=== PATIENT | male | born 1960 | race Two or more races ===

== ENCOUNTER 2024-03-03 09:22 | Outpatient (REF) | payer OTHER, SELFPAY ==
[2024-03-03 13:51] LABS: MANUAL DIFF FLAG NO
[2024-03-03 14:00] LABS: Basophils Absolute Auto 0.1 X10*3/uL (0.0-0.2); Basophils Percent Auto 0.6 % (0-2); Hematocrit 42.5 % (42.0-52.0); Hemoglobin 14.5 g/dl (14.0-18.0); Imm Gran Abs Auto 0.06 X10*3/uL (0.00-0.03); Imm Gran Pct Auto 0.6 % (0.0-0.4); Lymphocytes Absolute Auto 1.8 X10*3/uL (1.2-4.9); Lymphocytes Percent Auto 16.7 % (20-40); Mean Corpuscular HGB Conc 34.1 g/dl (31.0-36.0); Mean Corpuscular Hemoglobin 33.8 pg (27.0-33.0); Mean Corpuscular Volume 99.1 fL (80.0-98.0); Mean Platelet Volume 12.2 fL (9.4-12.4); Monocytes Absolute Auto 0.8 X10*3/uL (0.1-1.2); Monocytes Percent Auto 7.1 % (2-11); Neutrophils Absolute Auto 8.2 x10*3/uL (2.0-8.3); Platelet Count 225 X10*3/uL (160-400); Red Blood Count 4.29 X10*6/uL (4.60-5.80); Red Cell Distribution Width 15.7 % (11.0-16.0); White Blood Count 10.9 X10*3/uL (4.8-10.8)
[2024-03-03 14:14] LABS: Estimated Average Glucose 97 mg/dL
[2024-03-03 14:20] LABS: Alanine Aminotransferase 13 U/L (0-40); Albumin Level 4.4 g/dL (3.5-5.0); Alkaline Phosphatase 67 U/L (39-117); Anion Gap 14 (12-20); Aspartate Amino Transferase 18 U/L (5-37); Bilirubin Total 0.5 mg/dL (0.0-1.0); Blood Urea Nitrogen 13 mg/dL (9-16); Calcium 9.6 mg/dL (8.4-10.2); Carbon Dioxide 24 mmol/L (22-29); Chloride 105 mmol/L (96-108); Cholesterol 228 mg/dL (<200); Estimated Glomerular Filt Rate > 60; Glucose Random 93 mg/dL (60-115); HDL Cholesterol 48 mg/dL (>40); LDL Cholesterol Calculated 143 mg/dL (<100); Sodium 139 mmol/L (135-145); Total Protein 8.1 g/dL (6.5-8.0); Triglycerides 189 mg/dL (<150)
[2024-03-03 14:31] LABS: PSA,Total (Free>4and<10) 0.82 ng/mL (0.00-4.00)
[2024-03-04 08:32] LABS: ~HepC Num1 0.06 S/CO (0.00-0.79); ~Hepatitis C Antibody Nonreactive (Nonreactive)
[2024-03-06 09:09] LABS: HIV RNA PCR Qn Copies Not Detected Copies/mL; HIV RNA PCR Qn Log Copies Not Detected Log cps/mL
== END 2024-03-03 09:23 | disposition home or self-care (01) ==
LOC: HO.CHCLDS 09:22
PROVIDERS: Visit Provider Internal Medicine
DX: I10 Essential (primary) hypertension (principal); Z12.5 Encounter for screening for malignant neoplasm of prostate
CPT/HCPCS: 36415; 80053; 80061; 83036; 84153; 84443; 85025; 86803; 87536; 87900

== ENCOUNTER 2024-11-03 11:50 | Outpatient (REF) | payer MEDICAID, SELFPAY ==
[2024-11-03 14:36] LABS: Anion Gap 13 (12-20); Blood Urea Nitrogen 25 mg/dL (9-16); Calcium 9.8 mg/dL (8.4-10.2); Carbon Dioxide 21 mmol/L (22-29); Chloride 108 mmol/L (96-108); Estimated Glomerular Filt Rate > 60; Glucose Random 82 mg/dL (60-115); Potassium 4.4 mmol/L (3.3-5.1); Sodium 138 mmol/L (135-145)
--- OUTSIDE RECORDS SUMMARY | 2024-11-03 14:38 | XMS_ITS | Encounter Summary ---
Author Organization [employer] Address [address] [facility] [address] [place] [address] Care Team Providers Care Physical Director Name Role Phone Nicanor Navas MD Primary Care Prov ider Reason for Referral * Consultation (Routine) - Pending Review Specialty Diagnoses / Procedures Referred By Jake padron Referred To Contact Physical Therapy Diagnoses Acute midline low back pain without sciatica Pancho Mascorro MD [address] [place] [phone] Phone: tel: fax: Referral ID Status Reason Start Date Expiration Date Visits Requested Visits Authorized [id number] Pending Review Specialty Services Required 11/03/2024 11/03/2025 1 1 * Consultation (Routine) - Authorized Specialty Diagnoses / Procedures Referred By Jake padron Referred To Contact Pharmacy Diagnoses Smoking Pancho Mascorro MD [address] [place] [phone] Phone: tel: fax: Referral ID Status Reason Start Date Expiration Date Visits Requested Visits Authorized [id number] Authorized Consult and Treat 11/03/2024 11/03/2025 6 6 Scheduling Instructions Smoking cessation. * PFT (Routine) - Authorized Specialty Diagnoses / Procedures Referred By Jake padron Referred To Contact Diagnoses SOB (shortness of breath) Smoking Procedures Pulmonary Function Test Pancho Mascorro MD [address] [place] [phone] Phone: tel: fax: [facility] [address] [place], [place] Phone: tel: fax: Referral ID Status Reason Start Date Expiration Date V isits Requested Visits Authorized [id number] Authorized 11/03/2024 11/03/2025 1 1 Encounter Details Date Type Department Care Team (Late st Contact Info) Description 11/03/2024 10:45 AM EDT Office Visit [facility] [address] [place] [address] Pancho Mascorro MD [address] [place] [address] SOB (shortness of breath) (Primary Dx); KALYAN (acute kidney injury) (CMS/HCC); Pyelonephritis; Smoking; Acute midline low back pain without sciatica Social History Tobacco Use Types Packs/Day Years Used Date Smoking Tobacco: Every Day Cigarettes 1.5 45 Smokeless Tobacco: Never Alcohol Use Standard Drinks/Week Comments Yes 0 (1 standard drink = 0.6 oz pur e alcohol) wine Depression Answer Date Recorded Patient Health Questionnaire-9 Score 0 01/06/2024 Patient Health Questionnaire-9 Score 0 01/06/2024 Last PHQ-9: Questionnaire Data Not on file 0 01/06/2024 Housing Stability Answer Date Recorded What is your housing situation today? I do not have housing (Staying with others, in a hotel, in a alf, living outside on the street, on a beach, in a car, or in a park 11/03/[address] you li ve. Do you have problems with any of the following? Lead [place] or [place];Inadequate heat 11/03/2024 Food Insecurity Answer Date Recorded Within the past 12 months, y ou worried that your food would run out before you got money to buy more: Sometimes True 2024 Within the past 12 months,th e food you bought just didn't last and you didn't have enough money to get more: Sometimes True 11/03/2024 Transportation Answer Date Recorded In the past 12 months, has l ack of transportation kept you from medical appts, meetings, work or from getting things needed for daily living? No 01/06/2024 Utilities Answer Date Recorded In the past 12 months, has t he electric, gas, oil or water company threatened to shut off services in your home? Yes 11/03/2024 Depression Answer Date Recorded Patient Health Questionnaire-2 Score 0 01/06/2024 Internet Access Answer Date Recorded Internet Access Q1 Yes 11/03/2024 Internet Access Q2 Not on file 11/03/2024 Sex and Gender Information Value Date Recorded Sex Assigned at Male 01/06/2024 10:47 AM EDT Legal Sex Male 9:33 AM EDT Gender Identity Male 01/06/2024 10:47 AM EDT Sexual Orientation Straight 01/06/2024 10 :47 AM EDT documented as of this encounter Last Filed Vital Signs Vital Sign Reading Time Taken Comments Blood Pressure 144/83 11/03/2024 11:00 AM EDT Pulse 116 11/03/2024 11:00 AM EDT Temperature 36.7 ??C (98 ??F) 11/03/2024 11:00 AM EDT Respiratory Rate 20 11/03/2024 11:00 AM EDT Oxygen Saturation 99% 11/03/2024 11:00 AM EDT Inhaled Oxygen Concentration - - Weight 66.2 kg (146 lb) 11/03/2024 11:00 AM EDT Height 160 cm (5' 3 ) 11/03/2024 11:00 AM EDT Body Mass Index 25.86 11/03/2024 11:00 AM EDT documented in this encounter Plan of Treatment Scheduled Orders Name Type Priority Associated Diagnoses Orde r Schedule Pulmonary Function Test PFT Routine SOB (shortness of breath) Smoking Expected: 11/03/2024, Expires: 05/06/2025 PSA, Total With Reflex to PSA, Free Lab Routine KALYAN (acute kidney injury) (CMS/HCC) Smoking Expected: 11/03/2024 (Approximate), Expires: 11/03/2025 XR Lumbar Spine 2-3 Views Imaging Routine Acute midline low back pain without sciatica Expected: 11/03/2024, Expires: 11/03/2025 Scheduled Referrals Name Type Priority Associated Diagnoses Orde r Schedule Referral to Pharmacy CDTM Outpatient Referral Routine Smoking Ordered: 11/03/2024 Referral to Physical Therapy Outpatient Referral Routine Acute midline low back pain without sciatica Expected: 11/03/2024 (Approximate), Expires: 11/03/2025 documented as of this encounter Procedures Procedure Name Priority Date/Time Associated Diagnosis Comments BASIC METABOLIC PANEL Routine 11/03/2024 11:52 AM EDT KALYAN (acute kidney injury) ([facility]) Smoking documented in this encounter Results * (ABNORMAL) Basic Metabolic Panel (11/03/2024 11:52 AM EDT) Sodium 138 135 - 145 mmol/L [facility] Potassium 4.4 3.3 - 5.1 mmol/L [facility] Chloride 108 96 - 108 mmol/L [facility] Carbon Dioxide 21(L) 22 - 29 mmol/L [facility] Anion Gap 13 12 - 20 [facility] Urea Nitrogen (BUN) 25(H) 9 - 16 mg/dL [facility] Creatinine, Serum 0.89 0.5 - 1.4 mg/dL [facility] Estimated Glomerular Filt Rate >60 [facility] Comment:Chronic Kidney Disea se: Estimated GFR < 60 mL/min/[id number] Kidney Disease: Estimated GFR < 15 mL/min/1.73m2 Glucose 82 60 - 115 mg/dL [facility] Calcium 9.8 8.4 - 10.2 mg/dL [facility] Blood Venous blood specimen / Unknown 11/03/2024 11:52 AM EDT 11/03/2024 2:07 PM EDT us Pancho Mascorro MD LAB BLOOD ORDERABLES Final Result [facility] [address] [place] [phone] documented in this encounter Visit Diagnoses Diagnosis SOB (shortness of breath)- Primary Shortness of breath KALYAN (acute kidney injury) ([facility]/HCC) Pyelonephritis Unspecified pyelonephritis Smoking Tobacco use disorder Acute midline low back pain without sciatica documented in this encounter Additional Health Concerns Assessment Noted Time PHQ-9 Depression Total Score: 0 01/06/20 24 1:44 PM EDT documented as of this encounter Care Teams Physical Director Relationship Specialty Start Date End Date Nicanor Navas MD [address] [place] [phone] PCP - General Internal Medicine 01/06/24 documented as of this encounter
--- OUTSIDE RECORDS SUMMARY | 2024-11-03 14:38 | XMS_ITS | Encounter Summary ---
Author Organization [employer] Address [address] [facility] 7 [place] [address] Care Team Providers Care Assistant Account Manager Name Role Phone Nicanor Navas MD Primary Care Prov ider Reason for Visit * Reason Comments Transition Of Care (Tcm) HDF- Unschedule d LVM Encounter Details Date Type Department Care Team ([facility] st Contact Info) Description 10/26/2024 Patient Outreach [facility] [address] [place] [address] Nicanor Navas MD [address] [place] [address] Transition Of Care (Tcm) (HDF- Unscheduled LVM) Social History Tobacco Use Types Packs/Day Years [...] What is your housing situation today? I have eunice harris 01/06/[address] you li ve. Do you have problems with any of the following? None of the above 01/06/2024 Food Insecurity Answer Date Recorded Within the past 12 months, y ou worried that your food would run out before you got money to buy more: Never True 01/06/2024 Within the past 12 months,th e food you bought just didn't last and you didn't have enough money to get more: Never True Transportation Answer Date Recorded In the past 12 months, has l ack of transportation kept you from medical appts, meetings, work or from getting things needed for daily living? No 01/06/2024 Utilities Answer Date Recorded In the past 12 months, has t he electric, gas, oil or water company threatened to shut off services in your home? No 01/06/2024 Depression Answer Date Recorded Patient Health Questionnaire-2 Score 0 01/06/2024 Sex and Gender Information Value Date Recorded Sex Assigned at Male 01/06/2024 10:47 AM EDT Legal Sex Male 9:33 AM EDT Gender Identity Male 01/06/2024 10:47 AM EDT Sexual Orientation Straight 01/06/2024 10 :47 AM EDT documented as of this encounter Miscellaneous Notes * Significant Event - Denise Colby - 10/26/2024 12:50 PM EST 10/26/24 1248 Hospital Discharges and Admission for [facility] Type of Visit Hospital Admission Date of Admission/Visit 10/17/24 Date of Discharge 10/19/24 [facility] Diagnosis Pyelonephritis,Acute kidney injury,Hypertension, COPD with acute exacerbation,Sepsis,Acute hypoxemic respiratory failure, Bacteremia Disposition Discharged Home Follow-Up Actions Follow-Up Needed Provider appointment Follow-Up Outcome Left Voicemail Initial Contact Date 10/26/24 CHRISTIAN Fall placed outbound call to patient for HDF outreach. CC placing call to offer patient with an HDF appointment with provider. No answer at this time. Patient's name and were not confirmed. CC left detailed message educating patient on importance of following up with provider following an inpatient admission. Provided contact information requesting a call back in order to schedule theHDF appointment. Patient educated via voicemail on extended clinic hours on Mondays and Wednesdays,and Walk-In Urgent Care Located in [facility]. Patient provided with after-hours line for [facility], , which offer night time triage service and option to transfer to occupational medicine officer provider if needed. CC scanned both discharge summary into patient's chart. CC will place additional outreach call within 2-5 business days. documented in this encounter Plan of Treatment Not on file documented as of this encounter Visit Diagnoses Not on filedocumented in this encounter Additional Health Concerns Assessment Noted Time PHQ-9 Depression Total Score: 0 01/06/20 1:44 PM EDT documented as of this encounter Care Teams Assistant Account Manager Relationship Specialty Start Date End Date Nicanor Navas MD [address] [place] [phone] PCP - General Internal Medicine 01/06/24 documented as of this encounter
--- OUTSIDE RECORDS SUMMARY | 2024-11-03 14:38 | XMS_ITS | Encounter Summary ---
Author Organization [employer] Address [address] [facility] [address] [place] [address] Care Team Providers Care Ship Superintendent Name Role Phone Nicanor Navas MD Primary Care Prov ider Reason for Visit * Reason Comments Transition Of Care (Tcm) HDF scheduled. Encounter Details Date Type Department Care Team ([facility] st Contact Info) Description 10/27/2024 Patient Outreach [facility] [address] [place], [place] [phone] Nicanor Navas MD [address] [place] [address] Transition Of Care (Tcm) (HDF scheduled. ) Social History Tobacco Use Types Packs/Day Years [...] encounter Miscellaneous Notes * Significant Event - Hillary Rosado - 10/27/2024 12:56 PM EST 10/27/24 1250 Hospital Discharges and Admission for [facility] Date of Admission/Visit 10/17/24 Date of Discharge 10/19/24 Facility [facility] Diagnosis COPD Acute exarcebation. Disposition Discharged Home Follow-Up Actions Follow-Up Needed Provider appointment Follow-Up Outcome Spoke to Patient;Booked Appointment Initial Contact Date 10/27/24 CC Hillary Baeza placed outbound call to patient for HDF outreach. Patient's name and were confirmed. Patient educated on the importance of follow up with provider following inpatient admission. Patient offered an HDF appt. Patient is agreeable to an appointment and has been scheduled for 11/03/2024 at 10:45am with Dr. Mascorro. patient provided with education on contacting the Health Center with any questions or concerns prior to the scheduled appointment. Patient educated on extended clinic hours on Mondays and Wednesdays, and Walk-In Urgent Care Located in [facility]. Patient provided with after-hours line for [facility], , which offer night time triage service and option to transfer to integration solution architect provider if needed. CC scanned discharge summary into patient's chart. Biggest concern for appointment at this time is no concerns. Appropriate screenings completed in anticipation of appointment. documented in this encounter Plan of Treatment Not on file documented as of this encounter Visit Diagnoses Not on filedocumented in this encounter Additional Health Concerns Assessment Noted Time PHQ-9 Depression Total Score: 0 01/06/20 24 1:44 PM EDT documented as of this encounter Care Teams Ship Superintendent Relationship Specialty Start Date End Date Nicanor Navas MD [address] [place] [phone] PCP - General Internal Medicine 01/06/24 documented as of this encounter
--- OUTSIDE RECORDS SUMMARY | 2024-11-03 14:38 | XMS_ITS | Encounter Summary ---
Author Organization [employer] Address [address] [facility] [address] [place] [address] Care Team Providers Care Marker Shipments Name Role Phone Nicanor Navas MD Primary Care Prov ider Reason for Visit * Reason Onset Date Comments Hospital Follow-up 10/26/2024 Encounter Details Date Type Department Care Team ([facility] st Contact Info) Description 10/26/2024 Telephone [facility] [address] [place], [place] [phone] Nicanor Navas MD [address] [place] [address] Hospital Follow-up Social History Tobacco Use Types Packs/Day Years [...] as of this encounter Miscellaneous Notes * Telephone Encounter - Xavi Hussein - 10/27/2024 12:26 PM EST Tc from pt returning call regarding prior message. Contact pt at [phone] (Nigerien) * Telephone Encounter - Shanna Anguiano - 10/26/2024 11:59 AM EST Tc from pt friend jason requesting a HDF appt. Hospital: [facility] and then transferred to [facility] in [place] Date of admission: 10/12/24 Discharge date: 10/21/24 Diagnosed: fall , bladder infection and some kidney concern *Send message to [place] [facility] Coordinators documented in this encounter Plan of Treatment Not on file documented as of this encounter Visit Diagnoses Not on filedocumented in this encounter Additional Health Concerns Assessment Noted Time PHQ-9 Depression Total Score: 0 01/06/20 1:44 PM EDT documented as of this encounter Care Teams Marker Shipments Relationship Specialty Start Date End Date Nicanor Navas MD [address] [place] [phone] PCP - General Internal Medicine 01/06/24 documented as of this encounter
--- OUTSIDE RECORDS SUMMARY | 2024-11-03 14:38 | XMS_ITS | Clinical Summary ---
Author Organization [employer] Address [address] [facility] [address] [place] [address] Care Team Providers Care Agriculture Professor Name Role Phone Nicanor Navas MD Primary Care Prov ider Allergies No known active allergies Medications sildenafil (Viagra) 50 MG tablet Take 1 tablet (50 mg) by mouth if needed each day for erectile dysfunction. 25 tablet 01/06/20 24 Active Blood Pressure kit 1 kit Once per day. 1 kit 01/08/20 24 Active amLODIPine (Norvasc) 10 MG tablet Take 1 tablet (10 mg) by mouth Once per day. 30 tablet 11 03/03/20 24 025 Active lisinopril 40 MG tablet Take 1 tablet (40 mg) by mouth Once per day. 90 tablet 03/03/20 24 025 Active atorvastatin (Lipitor) 40 MG tablet Take 1 tablet (40 mg) by mouth Once per day. 30 tablet 04/13/20 24 025 Active Additional Information Patient not taking.Reported on 10/30/2024 Ventolin HFA 108 (90 Base) MCG/ACT inhaler Inhale 1 puff every 4 (four) hours if needed for wheezing or shortness of breath. 10/19/19 25 Active cefpodoxime (Vantin) 200 MG tablet Take 1 tablet by mouth 2 times daily. 10/19/19 25 025 Active Breo Ellipta 100-25 MCG/ACT aerosol powder Inhale 1 puff Once per day. 10/19/19 25 Active Umeclidinium- Vilanterol (Anoro Ellipta) 62.5-25 MCG/ACT aerosol powderIndicat ions:SOB (shortness of breath) Inhale 62.5 mcg Once per day. 60 each 11 11/04/19 25 Active nicotine (Nicoderm CQ) 21 MG/24HR patchIndicati ons:Smoking Place 1 patch on the skin 1 (one) time each day at the same time. 30 patch 11/04/19 25 025 Active celecoxib (CeleBREX) 100 MG capsuleIndica tions:Acute midline low back pain without sciatica Take 1 capsule (100 mg) by mouth 2 times daily. 60 capsule 11/04/19 25 025 Active hydrOXYzine HCl (Atarax) 25 MG tablet Take 1 tablet (25 mg) by mouth if needed in the morning, at noon, and at bedtime for itching. 90 tablet 3 04/13/20 24 025 Discontinued(Me d list cleanup (will not trigger notification to Pharmacy)) Active Problems Problem Noted Date Diagnosed Date Acute midline low back pain without sciatica 06/2025 Anxiety 04/13/2024 Assessment & Plan (04/13/2024 1:39 PM EDT): Will prescribe hydroxyzine, not interested in BH therapy for now Mixed hyperlipidemia 04/13/2024 Assessment & Plan (04/13/2024 1:39 PM EDT): The 10-year ASCVD risk score (Aguila PAINTER, et al., 2019) is: 21.1% Values used to calculate the score: Age: 64 years Sex: Male Is Non- : No Diabetic: No Tobacco smoker: Yes Systolic Blood Pressure: 123 mmHg Is BP treated: Yes HDL Cholesterol: 48 mg/dL Total Cholesterol: 228 mg/dL Will start on atorvastatin 40mg, risk vs benefits were discussed, follow up in 4 months Primary hypertension 01/08/2024 Assessment & Plan (04/13/2024 1:38 PM EDT): Controlled, continue amlodipine and lisinopril, encourage low sodium diet, follow up in 4 months Assessment & Plan (03/03/2024 12:35 PM EDT): Not at target, will increase lisinopril and amlodipine, follow up in 1 month, decrease sodium in diet and exercise as tolerated, new labs ordered Assessment & Plan (01/08/2024 10:57 PM EDT): On lisinopril and amlodipine, will send a bp monitor, told to keep a log, target <140/90 Prostate cancer screening 01/08/2024 Assessment & Plan (01/08/2024 10:58 PM EDT): Will order PSA Screening for lung cancer 01/08/2024 Assessment & Plan (01/08/2024 10:58 PM EDT): >40 pack year smoker hx, will refer for lung cancer screening Colon cancer screening 01/08/2024 Assessment & Plan (01/08/2024 10:57 PM EDT): Will refer for colon cancer screening Other male erectile dysfunction 01/08/2024 Assessment & Plan (01/08/2024 10:59 PM EDT): Denied having moring erections, will start on viagra, call back if side effects reported Encounter to establish care 01/08/2024 Assessment & Plan (01/08/2024 11:01 PM EDT): Patient has not visit er/hospitalized in over 10 years. He has hx of htn on amlodipine and lisinopril. Chronic smoker: need lung cancer screening Will place lab order to evaluate for other secondary conditions Encounters Date Type Department Care Team Description 11/03/2024 10:45 AM EDT Office Visit [facility] [address] [place] [address] Pancho Mascorro MD SOB (shortness of breath) (Primary Dx); KALYAN (acute kidney injury) (CMS/HCC); Pyelonephritis; Smoking; Acute midline low back pain without sciatica 11/03/2024 Travel 10/30/2024 Travel 10/27/2024 Patient Outreach [facility] [address] [place] [address] Nicanor Navas MD Transition Of Care (Tcm) (HDF scheduled. ) 10/26/2024 Patient Outreach [facility] [address] [place] [address] Nicanor Navas MD Transition Of Care (Tcm) (HDF- Unscheduled LVM) 10/26/2024 Telephone [facility] [address] [place], [place] [phone] Nicanor Navas MD Hospital Follow-up 08/24/2024 Telephone [facility] [address] [place] [address] Nicanor Navas MD from Last 3 Months Family History Medical History Relation Name Comments Gout Father No Known Problems Mother Relation Name Status Comments Father Mother Social History Tobacco Use Types Packs/Day Years Used Date Smoking Tobacco: Every Day Cigarettes 1.5 45 Smokeless Tobacco: Never Tobacco Cessation:Ready to Q uit: Not Asked; Counseling Given: Not Answered Alcohol Use Standard Drinks/Week Comments Yes 0 [...] with others, in a hotel, in a prison, living outside on the street, on a beach, in a car, or in a park 11/03/[address] you li ve. Do you have problems with any of the following? Lead [place] or [place];Inadequate heat 11/03/2024 Food Insecurity Answer [...] Orientation Straight 01/06/2024 10 :47 AM EDT Last Filed Vital Signs Vital Sign Reading [...] Mass Index 25.86 11/03/2024 11:00 AM EDT Plan of Treatment Health Maintenance Due Date Last Done Comments CT Colonography 1959 Colonoscopy 1959 Colorectal Cancer Screening 1959 FIT DNA/Cologuard 1959 FIT 1959 FOBT 1959 Sigmoidoscopy 1959 Alcohol/Substance Use Screening 1971 DTaP/Tdap/Td Vaccines (1 - Tdap) 1978 Pneumococcal Vaccine: 50+ Years (1 of 2 - PCV) 1978 Lung Cancer Screening 2009 Zoster Vaccines (1 of 2) 2009 COVID-19 Vaccine (4 - 2023-2 5 season) 2024 09/01/2021, 01/12/2021, 12/15/2020 Influenza Vaccine (#1) 2024 Depression Screening 01/05/2025 01/06/2024, 01/06/2024 SDOH Screening 01/05/2025 01/06/2024 Tobacco Screening 01/07/2025 01/08/2024 Lipid Panel 03/03/2029 03/03/2024 RSV Patients and Patients Aged 60 years or older (1 - 1-dose 75+ series) 2034 Hepatitis C Screening Completed 03/03/2024 HIB Vaccines Aged Out No longer eligi ble based on patient's age to complete this topic HPV Vaccines Aged Out No longer eligi ble based on patient's age to complete this topic Hepatitis A Vaccines Aged Out No long er eligible based on patient's age to complete this topic Hepatitis B Vaccines Aged Out No long er eligible based on patient's age to complete this topic IPV Vaccines Aged Out No longer eligi ble based on patient's age to complete this topic Meningococcal Vaccine Aged Out No ryne alec eligible based on patient's age to complete this topic RSV under 20 months Aged Out No longe r eligible based on patient's age to complete this topic Rotavirus Vaccines Aged Out No longer eligible based on patient's age to complete this topic Procedures Procedure Name Priority Date/Time Associated Diagnosis Comments BASIC METABOLIC PANEL Routine 11/03/2024 11:52 AM EDT KALYAN (acute kidney injury) (CMS/HCC) Smoking HEPATITIS C AB W/REFL TO HCV RNA, QN, PCR Routine 03/03/2024 9:25 AM EDT Primary hypertension LIPID PANEL, STANDARD Routine 03/03/2024 9:25 AM EDT Primary hypertension from Last 3 Months or Most Recently Relevant to Health Maintenance Results * (ABNORMAL) Basic Metabolic Panel (11/03/2024 11:52 AM EDT) Sodium 138 135 - 145 mmol/L [facility] Potassium 4.4 3.3 - 5.1 mmol/L [facility] Chloride 108 96 - 108 mmol/L [facility] Carbon Dioxide 21(L) 22 - 29 mmol/L [facility] Anion Gap 13 12 - 20 [facility] Urea Nitrogen (BUN) 25(H) 9 - 16 mg/dL [facility] Creatinine, Serum 0.89 0.5 - 1.4 mg/dL [facility] Estimated Glomerular Filt Rate >60 [facility] Comment:Chronic Kidney Disea se: Estimated GFR < 60 mL/min/[id number] Kidney Disease: Estimated GFR < 15 mL/min/1.73m2 Glucose 82 60 - 115 mg/dL [facility] Calcium 9.8 8.4 - 10.2 mg/dL [facility] Blood Venous blood specimen / Unknown 11/03/2024 11:52 AM EDT 11/03/2024 2:07 PM EDT us Pancho Masocrro MD LAB BLOOD ORDERABLES Final Result Performing Organization Address [facility] Co de Phone Number [facility] [address] [place] [phone] * Hepatitis C Antibody with Reflex to HCV, RNA, Quantitative, Real-Time PCR (03/03/2024 9:25 AM EDT) Hepatitis C Antibody Nonreactive Nonreactive [facility] Comment:Antibodies to HCV no t detected; does not exclude early acuteHCV infection. Blood Venous blood specimen / Unknown 03/03/2024 9:25 AM EDT 03/03/2024 1:48 PM EDT us Nicanor Sanchez MD LAB BLOOD ORDERABL ES Final Result Performing Organization Address [facility] Co de Phone Number [facility] [address] [place] [address] [phone] * (ABNORMAL) Lipid Panel, Standard (03/03/2024 9:25 AM EDT) Triglycerides 189(H) <150 mg/dL [facility] Comment:Desirable Triglyceri de: less than 150 mg/dLBorderline High Triglyceride 150-199 mg/dLHigh Triglyceride: 200-499 mg/dLVery High Triglyceride: greater than or equal to 5OO mg/dL Cholesterol 228(H) <200 mg/dL [facility] Comment:Desirable Cholestero l: less than 200 mg/dLBorderline High Cholesterol: 200-239 mg/dLHigh Cholesterol: greater than 239 mg/dL LDL Cholesterol Calculated 143(H) <100 mg/dL [facility] Comment:Desirable LDL: less than 100 mg/dLNear Optimal/Above Optimal LDL: 110- 129 mg/dLBorderline High LDL: 130-159 mg/dLHigh LDL: 160-189 mg/dLVery High LDL: greater than or equal to 190 mg/dL HDL Cholesterol 48 >40 mg/dL [facility] Comment:Desirable HDL: great er than 40 mg/dL Note: This HDL assay may give artificially low results in patients with liver disease. Blood Venous blood specimen / Unknown 03/03/2024 9:25 AM EDT 03/03/2024 1:48 PM EDT Nicanor Sanchez MD LAB BLOOD ORDERABL ES Final Result [facility] [address] [place] [address] [phone] from Last 3 Months or Most Recently Relevant to Health Maintenance Insurance [facility] [employer] [facility] FULL Care Teams Agriculture Professor Relationship Specialty Start Date End Date Nicanor Navas MD [address] [place] [phone] PCP - General Internal Medicine 01/06/24
--- OUTSIDE RECORDS SUMMARY | 2024-11-03 14:38 | XMS_ITS | Encounter Summary ---
Author Organization [employer] Address [address] [facility] [address] [place] [address] Care Team Providers Care Wound Care Technician Name Role Phone Nicanor Navas MD Primary Care Prov ider Encounter Details Date Type Department Care Team (Latest Contact Info) Description 10/30/2024 Travel Social History Tobacco Use Types Packs/Day Years [...] AM EDT documented as of this encounter Plan of Treatment Not on file documented as of this encounter Visit Diagnoses Not on filedocumented in this encounter Additional Health Concerns Assessment Noted Time PHQ-9 Depression Total Score: 0 01/06/20 1:44 PM EDT documented as of this encounter Care Teams Wound Care Technician Relationship Specialty Start Date End Date Nicanor Navas MD [address] [place] [phone] PCP - General Internal Medicine 01/06/24 documented as of this encounter
--- OUTSIDE RECORDS SUMMARY | 2024-11-03 14:38 | XMS_ITS | Encounter Summary ---
Author Organization [employer] Address [address] [facility] [address] [place] [address] Care Team Providers Care Internal Corrosion Specialist Name Role Phone Nicanor Navas MD Primary Care Prov ider Encounter Details Date Type Department Care Team (Latest Contact Info) Description 11/03/2024 Travel Social History Tobacco Use Types Packs/Day [...] with others, in a hotel, in a long term, living outside on the street, on a beach, in a car, or in a park 11/03/[address] you li ve. Do you have problems with any of the following? Lead [place] or [place];Inadequate heat 11/03/2024 Food Insecurity Answer [...] documented as of this encounter Care Teams Internal Corrosion Specialist Relationship Specialty Start Date End Date Nicanor Navas MD [address] [place] [phone] PCP - General Internal Medicine 01/06/24 documented as of this encounter
[2024-11-03 14:56] LABS: PSA,Total (Free>4and<10) 0.83 ng/mL (0.00-4.00)
== END 2024-11-03 11:51 | disposition home or self-care (01) ==
LOC: HO.CHCLDS 11:50
PROVIDERS: Visit Provider Internal Medicine
DX: N17.9 Acute kidney failure, unspecified (principal); F17.200 Nicotine dependence, unspecified, uncomplicated
CPT/HCPCS: 36415; 80048; 84153